=== PATIENT | female | born 1970 ===

== ENCOUNTER 2022-03-09 18:47 | Inpatient (IN) | payer BC, MEDICAID ==
[~2022-03-09] VITALS: Ht 170.2 cm; Wt 125.4 kg
[2022-03-09 19:26] LABS: BASOPHILS # (AUTO) 0.1 X10'3 (0-0.2); BASOPHILS % (AUTO) 0.8 % (0-1); EOSINOPHILS # (AUTO) 0.1 X10'3 (0-0.9); EOSINOPHILS % (AUTO) 0.9 % (0-6); HEMATOCRIT 39.6 % (35.0-45.0); HEMOGLOBIN 13.4 g/dl (12.0-16.0); LYMPHOCYTES % (AUTO) 23.4 % (21-51); MEAN CORPUSCULAR HEMOGLOBIN 32.3 PG (27.0-31.0); MEAN CORPUSCULAR HGB CONC 33.8 g/dL (33.0-36.5); MEAN CORPUSCULAR VOLUME 95.3 FL (78-98); MEAN PLATELET VOLUME 7.7 FL (7.4-10.4); MONOCYTES # (AUTO) 0.6 X10'3 (0-0.9); MONOCYTES % (AUTO) 6.6 % (2-12); NEUTROPHILS # (AUTO) 5.9 X10'3 (1.8-7.7); NEUTROPHILS % (AUTO) 68.3 % (42-75); PLATELET COUNT 312 X10'3 (140-440); RED BLOOD COUNT 4.16 X10'6 (4.20-5.60); RED CELL DISTRIBUTION WIDTH 15.5 % (11.5-14.5); WHITE BLOOD COUNT 8.7 X10'3 (4.5-11.0)
[2022-03-09 19:34] LABS: ALANINE AMINOTRANSFERASE 72 U/L (12-78); ALBUMIN/GLOBULIN RATIO 1.1 (1.1-1.5); ALKALINE PHOSPHATASE 93 IU/L (46-116); ANION GAP 9 (8-16); ASPARTATE AMINO TRANSFERASE 40 U/L (10-37); BILIRUBIN,TOTAL 2.1 MG/DL (0.1-1.0); BLOOD UREA NITROGEN 17 MG/DL (7-18); BUN/CREATININE RATIO 17.5 (6.6-38.0); CALCIUM 8.8 MG/DL (8.5-10.1); CHLORIDE 106 MMOL/L (99-107); CREATININE 0.97 MG/DL (0.40-0.90); GLUCOSE 107 MG/DL (70-104); POTASSIUM 3.7 MMOL/L (3.5-5.1); SODIUM 139 MMOL/L (135-145); TOTAL CARBON DIOXIDE 23.7 MMOL/L (24-32); TOTAL PROTEIN 7.5 G/DL (6.4-8.2); eGFR 61 ML/MIN
[2022-03-09] MEDS ORDERED: nitroGLYCERIN 0.4mg SUBLingual tab SL STA (19:43)
[2022-03-09] MEDS ORDERED: aspirin 81mg tab.chew PO ONE (19:45)
[2022-03-09] MEDS ORDERED: nitroGLYCERIN-Tridil 50MG/D5W 250 ML IV PRN (19:45)
[2022-03-09] MEDS ORDERED: magnesium 2GM in 50ml NS 50 ML IV PRN (20:15)
[2022-03-09] MEDS ORDERED: POTASSIUM BICARB 20meq eff tab 20 MEQ TABLET.EFF PO PRN (20:15)
[2022-03-09] MEDS ORDERED: potassium CL 10mEq/100ml bag 100 ML IV PRN (20:15)
[2022-03-09] MEDS ORDERED: acetaminophen 325mg tablet PO PRN (20:15)
[2022-03-09] MEDS ORDERED: PERFLUTREN PROTEIN-A MICROSPHR (Optison) 0.22 MG/ML 3ML VIAL IV ONE (20:15)
[2022-03-09] MEDS ORDERED: ondansetron/PF 4mg/2ml inj IV PRN (20:15)
[2022-03-09] MEDS ORDERED: magnesium hydroxide 30ml (MOM) UD suspension PO PRN (20:15)
[2022-03-09] MEDS ORDERED: mag hydrox/Alum hydrox/simeth 30ml oral suspension PO PRN (20:15)
[2022-03-09] MEDS ORDERED: magnesium 4gm in 100ml NS 100 ML IV PRN (20:15)
[2022-03-09] MEDS ORDERED: heparin 10,000 units/1 ML INJ IV ONE (21:30)
[2022-03-09] MEDS: heparin 25,000 UNIT/250ml bag 250 ML IV SCH (21:30)
[2022-03-09] MEDS ORDERED: hydrALAZINE 20mg/ml inj. IV PRN (21:30)
[2022-03-09] MEDS ORDERED: LOSA25TA96 PO (21:45)
[2022-03-09] MEDS ORDERED: FAMO-128 PO (21:45)
[2022-03-09] MEDS ORDERED: albuterol 2.5 MG/3 ML nebule NEB PRN (21:45)
[2022-03-09] MEDS ORDERED: LOP12.5T PO (21:45)
[2022-03-09] MEDS ORDERED: ASPI-1265 PO (21:45)
[2022-03-09] MEDS ORDERED: ALBU8.5H17 INH (21:45)
[2022-03-09 22:30] VITALS: BP 178/97
[2022-03-09] MEDS: ipratropium/albuterol 3ml nebule NEB SCH (23:20)
[2022-03-09 23:30] VITALS: BP 161/104
[2022-03-10] VITALS (11 sets, daily range): BP systolic 112–169; BP diastolic 66–99
[2022-03-10] MEDS ORDERED: HYDROcodone/acetaminophen 5mg/325mg tablet PO PRN (00:20)
[2022-03-10] MEDS: HYDROcodone/acetaminophen 10/325mg tab PO PRN ×2 (00:29→17:00)
[2022-03-10] MEDS: ipratropium/albuterol 3ml nebule NEB SCH ×6 (03:38→23:13)
--- NOTE | 2022-03-10 05:50 | NUR ---
Patient alert and oriented x4, patient better controlled at this time. Receiving nitro gtt for CP, and PRN norco for right leg pain was adequate. Patient on 2L NC for SOB at rest, SR in tele, SBA d/t weakness and nitro gtt. Voids in toilet, standing weight obtained upon arrival to unit. Pain inright leg was sudden onset after coming up to unit, order obtained for US to r/o DVT d/t concern patient may have PE and waiting on testing today. Patient unable to have CTA because of allergy to contrast.
[2022-03-10 06:19] LABS: BASOPHILS # (AUTO) 0.1 X10'3 (0-0.2); BASOPHILS % (AUTO) 1.1 % (0-1); EOSINOPHILS # (AUTO) 0.1 X10'3 (0-0.9); EOSINOPHILS % (AUTO) 1.4 % (0-6); HEMOGLOBIN 12.8 g/dl (12.0-16.0); LYMPHOCYTES # (AUTO) 2.5 X10'3 (1.1-4.8); LYMPHOCYTES % (AUTO) 31.4 % (21-51); MEAN CORPUSCULAR HEMOGLOBIN 31.9 PG (27.0-31.0); MEAN CORPUSCULAR HGB CONC 33.6 g/dL (33.0-36.5); MONOCYTES # (AUTO) 0.5 X10'3 (0-0.9); MONOCYTES % (AUTO) 6.5 % (2-12); NEUTROPHILS # (AUTO) 4.7 X10'3 (1.8-7.7); NEUTROPHILS % (AUTO) 59.6 % (42-75); PLATELET COUNT 272 X10'3 (140-440); RED BLOOD COUNT 3.99 X10'6 (4.20-5.60); RED CELL DISTRIBUTION WIDTH 15.4 % (11.5-14.5); WHITE BLOOD COUNT 7.9 X10'3 (4.5-11.0)
[2022-03-10 06:49] LABS: ALANINE AMINOTRANSFERASE 62 U/L (12-78); ALBUMIN 3.6 G/DL (3.4-5.0); ALBUMIN/GLOBULIN RATIO 1.1 (1.1-1.5); ALKALINE PHOSPHATASE 82 IU/L (46-116); ANION GAP 9 (8-16); ASPARTATE AMINO TRANSFERASE 35 U/L (10-37); BLOOD UREA NITROGEN 16 MG/DL (7-18); BUN/CREATININE RATIO 17.8 (6.6-38.0); CALCIUM 8.6 MG/DL (8.5-10.1); CHLORIDE 108 MMOL/L (99-107); GLUCOSE 90 MG/DL (70-104); POTASSIUM 3.3 MMOL/L (3.5-5.1); SODIUM 141 MMOL/L (135-145); TOTAL CARBON DIOXIDE 24.5 MMOL/L (24-32); TOTAL PROTEIN 6.9 G/DL (6.4-8.2); eGFR 66 ML/MIN
[2022-03-10] MEDS: budesonide 0.5mg/2ml UD nebule IH SCH ×2 (07:53→19:39)
--- NOTE | 2022-03-10 07:53 | NUR ---
Paged Dr Subramanian PAGER ID: [phone] MESSAGE: [id number]. Kwadwo Okeefe. Critical DVT PTT 122. Hep gtt held. Nava Portillo [phone]
[2022-03-10] MEDS: K and/or MAG REPLACEMENT MC SCH ×2 (08:00→19:26)
[2022-03-10] MEDS ORDERED: furosemide 10 MG/1 ML 10ml inj IV SCH (08:00)
[2022-03-10] MEDS: docusate sod 100mg capsule PO SCH ×2 (08:39→19:26)
[2022-03-10] MEDS: nitroGLYCERIN 0.4mg/hour patch TD SCH ×2 (08:39→20:20)
[2022-03-10] MEDS: POTASSIUM BICARB 20meq eff tab 20 MEQ TABLET.EFF PO PRN ×3 (08:41→21:07)
[2022-03-10] MEDS: heparin 25,000 UNIT/250ml bag 250 ML IV SCH ×2 (10:00→14:56)
--- NOTE | 2022-03-10 10:29 | NUR ---
Paged Dr Subramanian PAGER ID: [phone] MESSAGE: [id number]. Kwadwo Okeefe. VQ scan stopped d/t pt c/o intractable cramp pain in RLQ. Pls advise. Nava [phone]
--- NOTE | 2022-03-10 10:29 | NUR ---
JUAN RAMON Mireles brought pt back up to room. While patient was downstairs about to do the VQ scan she used the restroom first. While having a BM (she did not bear down); she explains a "bubble" that was very painful from the left of her abd to her right side. It happened about 3 times.
--- NOTE | 2022-03-10 11:42 | NUR ---
PAGER ID: [phone] MESSAGE: [id number]. Kwadwo Okeefe. More freq 07/10 pain radiating across abd. Can I get order of IV pain med? Nava Portillo [phone]
--- NOTE | 2022-03-10 11:49 | NUR ---
Paged Dr Subramanian PAGER ID: [phone] MESSAGE: [id number]. Kwadwo Okeefe. New onset, severe abd pain. CT? IV pain med? Lindsey, Nava [phone]
--- NOTE | 2022-03-10 12:02 | NUR ---
Malnutrition consult: Pt unsure of wt loss though reports decreased appetite per malnutrition risk screen with RN. Attempted visit with pt at bedside however pt in significant pain and unable to interview. RN promptly responded to patient's needs. During brief visit no fat or muscle wasting was observed. Current scaled wt is 185% IBW. Pending documentation of PO intake on heart healthy diet. Pt with no documented significant decrease in muscle strength or edema. Pt currently lacks a minimum of two criteria for malnutrition. Will continue to follow and further monitor qualifying criteria for malnutrition. Addendum: 03/10/22 at [address] Amended: Links added.
[2022-03-10] MEDS ORDERED: LORazepam 2 mg/ml vial IV ONE (12:10)
[2022-03-10] MEDS ORDERED: RIVA20TA PO (12:12)
[2022-03-10] MEDS ORDERED: BUME1TAB8 PO (12:12)
[2022-03-10] MEDS ORDERED: PANT40TA54 PO (12:12)
[2022-03-10] MEDS ORDERED: CLON0.1T2 PO (12:12)
[2022-03-10] MEDS ORDERED: LOSA50TA64 PO (12:12)
[2022-03-10] MEDS ORDERED: BUDE10.26 PO (12:12)
--- NOTE | 2022-03-10 12:12 | NUR ---
Received call from Dr Subramanian. Advised of new onset pain in abd and now right elbow radiating to right shoulder anterior to posterior. Cont heparin, new order for ativan IV once and morphine 2mg Q6H PRN pain. Will continue to monitor.
[2022-03-10] MEDS ORDERED: albuterol 2.5 MG/3 ML nebule NEB PRN (12:25)
[2022-03-10] MEDS: morphine 2 MG/ML inj. syringe IV PRN (12:35)
--- NOTE | 2022-03-10 12:58 | NUR ---
Paged Mariola Nurse. [id number]. Kwadwo Okeefe. assist to CT? Thx
--- NOTE | 2022-03-10 13:27 | NUR ---
Pt was able to get CT of abd completed but got another burst of pain in her left abd area. Sharp, acute. Comes in spurts and then subsides. Will attempt for VQ scan later.
[2022-03-10] MEDS: heparin 10,000 units/1 ML INJ IV PRN (14:54)
[2022-03-10] MEDS: furosemide 10 MG/1 ML 10ml inj IV SCH (19:24)
[2022-03-10] MEDS: cloNIDine 0.1 mg tablet PO SCH (19:24)
[2022-03-10] MEDS: bumetanide 1mg tablet PO SCH (19:24)
[2022-03-10] MEDS ORDERED: non-formulary drug (Budesonide/Formoterol Fumarate (Budesonide-Formoterol 160-4.5) 2 PUFFS PO SCH (20:00)
[2022-03-10] MEDS ORDERED: enoxaparin 40mg/0.4ml syringe SQ SCH (20:00)
[2022-03-11 02:00] VITALS: BP 127/78
[2022-03-11] MEDS: morphine 2 MG/ML inj. syringe IV PRN ×3 (02:27→22:00)
[2022-03-11] MEDS: ipratropium/albuterol 3ml nebule NEB SCH ×6 (03:14→22:56)
[2022-03-11] MEDS: heparin 25,000 UNIT/250ml bag 250 ML IV SCH (05:03)
[2022-03-11] MEDS: heparin 10,000 units/1 ML INJ IV PRN (05:26)
[2022-03-11 06:00] VITALS: BP 143/70
[2022-03-11 06:32] LABS: BASOPHILS # (AUTO) 0.1 X10'3 (0-0.2); BASOPHILS % (AUTO) 0.9 % (0-1); EOSINOPHILS # (AUTO) 0.2 X10'3 (0-0.9); EOSINOPHILS % (AUTO) 1.9 % (0-6); HEMATOCRIT 40.5 % (35.0-45.0); HEMOGLOBIN 13.6 g/dl (12.0-16.0); LYMPHOCYTES # (AUTO) 2.1 X10'3 (1.1-4.8); LYMPHOCYTES % (AUTO) 26.6 % (21-51); MEAN CORPUSCULAR HGB CONC 33.6 g/dL (33.0-36.5); MEAN CORPUSCULAR VOLUME 95.5 FL (78-98); MEAN PLATELET VOLUME 8.1 FL (7.4-10.4); MONOCYTES # (AUTO) 0.7 X10'3 (0-0.9); MONOCYTES % (AUTO) 8.7 % (2-12); NEUTROPHILS % (AUTO) 61.9 % (42-75); PLATELET COUNT 298 X10'3 (140-440); RED BLOOD COUNT 4.24 X10'6 (4.20-5.60); RED CELL DISTRIBUTION WIDTH 16.2 % (11.5-14.5)
[2022-03-11 06:50] LABS: ALANINE AMINOTRANSFERASE 56 U/L (12-78); ALBUMIN 3.7 G/DL (3.4-5.0); ALBUMIN/GLOBULIN RATIO 1.1 (1.1-1.5); ALKALINE PHOSPHATASE 87 IU/L (46-116); ANION GAP 8 (8-16); ASPARTATE AMINO TRANSFERASE 26 U/L (10-37); BILIRUBIN,TOTAL 1.2 MG/DL (0.1-1.0); BLOOD UREA NITROGEN 15 MG/DL (7-18); BUN/CREATININE RATIO 15.6 (6.6-38.0); CALCIUM 8.8 MG/DL (8.5-10.1); CHLORIDE 102 MMOL/L (99-107); CREATININE 0.96 MG/DL (0.40-0.90); GLUCOSE 102 MG/DL (70-104); MAGNESIUM 1.9 MG/DL (1.5-2.4); POTASSIUM 3.4 MMOL/L (3.5-5.1); SODIUM 138 MMOL/L (135-145); TOTAL CARBON DIOXIDE 27.7 MMOL/L (24-32); TOTAL PROTEIN 7.2 G/DL (6.4-8.2); eGFR 61 ML/MIN
[2022-03-11] MEDS: budesonide 0.5mg/2ml UD nebule IH SCH ×2 (07:45→19:05)
[2022-03-11] MEDS: POTASSIUM BICARB 20meq eff tab 20 MEQ TABLET.EFF PO PRN ×3 (08:00→19:36)
[2022-03-11] MEDS: K and/or MAG REPLACEMENT MC SCH ×2 (08:00→19:36)
[2022-03-11] MEDS: docusate sod 100mg capsule PO SCH ×2 (08:00→19:36)
[2022-03-11] MEDS: furosemide 10 MG/1 ML 10ml inj IV SCH ×2 (08:00→19:36)
[2022-03-11] MEDS: losartan 50mg tablet PO SCH (08:03)
[2022-03-11] MEDS: cloNIDine 0.1 mg tablet PO SCH ×2 (08:03→19:36)
[2022-03-11] MEDS: bumetanide 1mg tablet PO SCH ×2 (08:03→19:36)
[2022-03-11] MEDS: aspirin 81mg tab.chew PO SCH (08:03)
[2022-03-11] MEDS: pantoprazole 40mg Tablet.DR PO SCH (08:04)
[2022-03-11] MEDS: HYDROcodone/acetaminophen 10/325mg tab PO PRN (08:05)
[2022-03-11] MEDS: nitroGLYCERIN 0.4mg/hour patch TD SCH (08:07)
[2022-03-11] MEDS: LORazepam 0.5 MG tablet PO PRN (10:26)
[2022-03-11 11:40] VITALS: BP 107/65
--- NOTE | 2022-03-11 12:36 | NUR ---
Paged Dr Subramanian PAGER ID: [phone] MESSAGE: [id number]. Kwadwo Okeefe. Lung scan resulted. Low prob of PE. Nava Bonds [phone]
--- NOTE | 2022-03-11 13:10 | NUR ---
PAGER ID: [phone] MESSAGE: [id number]. Kwadwo Okeefe. Critical PTT >139. held hep gtt. CECILI. Nava [phone]
[2022-03-11 15:00] VITALS: BP 115/67
--- NOTE | 2022-03-11 15:09 | NUR ---
pt c/o of 10/10 left upper lateral abd pain. "Feels like and air pocket and takes my breath away!".she was aolmost in tears. Administered 2mg morphine. Appears that the pain is subsiding now.
[2022-03-11] MEDS: rivaroxaban 20mg tablet PO SCH (17:53)
[2022-03-11 18:00] VITALS: BP 123/79
[2022-03-11 22:00] VITALS: BP 134/72
[2022-03-12] VITALS (7 sets, daily range): BP systolic 99–134; BP diastolic 53–70
[2022-03-12] MEDS: ipratropium/albuterol 3ml nebule NEB SCH ×6 (03:05→22:50)
[2022-03-12 06:39] LABS: BASOPHILS # (AUTO) 0.1 X10'3 (0-0.2); BASOPHILS % (AUTO) 0.9 % (0-1); EOSINOPHILS # (AUTO) 0.2 X10'3 (0-0.9); EOSINOPHILS % (AUTO) 3.1 % (0-6); HEMOGLOBIN 14.1 g/dl (12.0-16.0); LYMPHOCYTES # (AUTO) 1.9 X10'3 (1.1-4.8); LYMPHOCYTES % (AUTO) 24.4 % (21-51); MEAN CORPUSCULAR HEMOGLOBIN 31.5 PG (27.0-31.0); MEAN CORPUSCULAR HGB CONC 32.9 g/dL (33.0-36.5); MEAN CORPUSCULAR VOLUME 95.9 FL (78-98); MEAN PLATELET VOLUME 7.4 FL (7.4-10.4); MONOCYTES # (AUTO) 0.9 X10'3 (0-0.9); MONOCYTES % (AUTO) 11.6 % (2-12); NEUTROPHILS # (AUTO) 4.6 X10'3 (1.8-7.7); PLATELET COUNT 327 X10'3 (140-440); RED BLOOD COUNT 4.48 X10'6 (4.20-5.60); RED CELL DISTRIBUTION WIDTH 16.4 % (11.5-14.5); WHITE BLOOD COUNT 7.6 X10'3 (4.5-11.0)
[2022-03-12 07:21] LABS: ALANINE AMINOTRANSFERASE 46 U/L (12-78); ALBUMIN 3.8 G/DL (3.4-5.0); ALKALINE PHOSPHATASE 82 IU/L (46-116); ANION GAP 10 (8-16); ASPARTATE AMINO TRANSFERASE 21 U/L (10-37); BILIRUBIN,TOTAL 1.1 MG/DL (0.1-1.0); BLOOD UREA NITROGEN 19 MG/DL (7-18); BUN/CREATININE RATIO 17.8 (6.6-38.0); CALCIUM 9.2 MG/DL (8.5-10.1); CHLORIDE 101 MMOL/L (99-107); CREATININE 1.07 MG/DL (0.40-0.90); GLUCOSE 99 MG/DL (70-104); MAGNESIUM 2.1 MG/DL (1.5-2.4); POTASSIUM 3.6 MMOL/L (3.5-5.1); SODIUM 136 MMOL/L (135-145); TOTAL CARBON DIOXIDE 25.1 MMOL/L (24-32); TOTAL PROTEIN 7.5 G/DL (6.4-8.2); eGFR 54 ML/MIN
[2022-03-12] MEDS: budesonide 0.5mg/2ml UD nebule IH SCH ×2 (07:29→19:17)
[2022-03-12] MEDS: pantoprazole 40mg Tablet.DR PO SCH (07:53)
[2022-03-12] MEDS: aspirin 81mg tab.chew PO SCH (07:53)
[2022-03-12] MEDS: losartan 50mg tablet PO SCH (07:53)
[2022-03-12] MEDS: HYDROcodone/acetaminophen 10/325mg tab PO PRN ×2 (07:54→20:25)
[2022-03-12] MEDS: docusate sod 100mg capsule PO SCH ×2 (07:59→20:22)
[2022-03-12] MEDS: cloNIDine 0.1 mg tablet PO SCH ×2 (07:59→20:22)
[2022-03-12] MEDS: K and/or MAG REPLACEMENT MC SCH ×2 (07:59→20:36)
[2022-03-12] MEDS: bumetanide 1mg tablet PO SCH ×2 (08:00→20:22)
[2022-03-12] MEDS: furosemide 10 MG/1 ML 10ml inj IV SCH (08:00)
[2022-03-12] MEDS: nitroGLYCERIN 0.4mg/hour patch TD SCH (08:01)
--- NOTE | 2022-03-12 09:41 | NUR ---
Per hospitalist who is rounding on floor ok to give both diuretics this AM. He is aware pt. states she has very old IUD implanted and she has difficulty getting f/u care for that. Will speak with CM later for resources. UA ordered.
--- NOTE | 2022-03-12 10:00 | NUR ---
Clean hat for toilet placed in bathroom and pt. educated that we need a UA and how to do a clean catch. Good feedback.
--- NOTE | 2022-03-12 15:21 | NUR ---
PAGER ID: [phone] MESSAGE: Kwadwo Okeefe [id number] woke to take VS- FYI putting in 02 order because SA02 was 84% on RA. May need sleep study OP? Yeimy [id number]
[2022-03-12 16:02] LABS: UA COLLECTION TYPE CLN CATCH MIDSTREAM
[2022-03-12 16:03] LABS: CLARITY,URINE SLIGHTLY CLOUDY (Clear); COLOR,URINE YELLOW (Yellow); GLUCOSE, URINE NEGATIVE (Neg); KETONES,URINE TRACE mg/dl (Neg); LEUKOCYTE ESTERASE ,URINE MODERATE (Neg); NITRITES, URINE NEGATIVE (Neg); OCCULT BLOOD,URINE NEGATIVE (Neg); PH,URINE 5.5 (4.8-8.0); PROTEIN,URINE TRACE mg/dl (Neg); UROBILINOGEN,URINE 0.2 E.U/dL (0.2-1.0)
[2022-03-12 16:08] LABS: BACTERIA,URINE 1+ /HPF (Neg); RBC,URINE 0-2 /HPF (0-2)
[2022-03-12 16:09] LABS: SQUAMOUS EPITHELIAL CELL,UR MODERATE /LPF (FEW)
--- NOTE | 2022-03-12 16:14 | NUR ---
PAGER ID: [phone] MESSAGE: Kwadwo Okeefe [id number] Pt. total OP today only 300ml/dysuria/ and UA pos. Do you want antibiotic? Yeimy [phone]
[2022-03-12] MEDS: cefTRIAXone 1g/NS 100ml IVPB 100 ML IV SCH (16:48)
[2022-03-12] MEDS: rivaroxaban 20mg tablet PO SCH (17:28)
--- NOTE | 2022-03-12 18:26 | NUR ---
Gave report to Misty NIÑO
[2022-03-13 02:00] VITALS: BP 110/59
[2022-03-13] MEDS: ipratropium/albuterol 3ml nebule NEB SCH ×5 (03:12→19:21)
[2022-03-13 06:00] VITALS: BP 124/61
[2022-03-13 06:15] LABS: BASOPHILS % (AUTO) 0.4 % (0-1); EOSINOPHILS # (AUTO) 0.3 X10'3 (0-0.9); EOSINOPHILS % (AUTO) 4.3 % (0-6); HEMATOCRIT 42.4 % (35.0-45.0); HEMOGLOBIN 14.4 g/dl (12.0-16.0); LYMPHOCYTES # (AUTO) 0.5 X10'3 (1.1-4.8); LYMPHOCYTES % (AUTO) 7.3 % (21-51); MEAN CORPUSCULAR HEMOGLOBIN 32.9 PG (27.0-31.0); MEAN CORPUSCULAR HGB CONC 34.1 g/dL (33.0-36.5); MEAN CORPUSCULAR VOLUME 96.4 FL (78-98); MEAN PLATELET VOLUME 7.4 FL (7.4-10.4); MONOCYTES # (AUTO) 0.5 X10'3 (0-0.9); MONOCYTES % (AUTO) 7.2 % (2-12); NEUTROPHILS # (AUTO) 5.5 X10'3 (1.8-7.7); NEUTROPHILS % (AUTO) 80.8 % (42-75); PLATELET COUNT 306 X10'3 (140-440); RED BLOOD COUNT 4.39 X10'6 (4.20-5.60); WHITE BLOOD COUNT 6.8 X10'3 (4.5-11.0)
--- NOTE | 2022-03-13 06:16 | NUR ---
Patient in room PCU 3024. I have received report from Will RN and had the opportunity to ask questions and assume patient care.
--- NOTE | 2022-03-13 06:30 | NUR ---
Patient in room PCU 3024. I have received report from WILL RN and had the opportunity to ask questions and assume patient care.
[2022-03-13 06:34] LABS: ALANINE AMINOTRANSFERASE 44 U/L (12-78); ALBUMIN 3.7 G/DL (3.4-5.0); ALKALINE PHOSPHATASE 83 IU/L (46-116); ANION GAP 9 (8-16); ASPARTATE AMINO TRANSFERASE 24 U/L (10-37); BLOOD UREA NITROGEN 22 MG/DL (7-18); BUN/CREATININE RATIO 20.4 (6.6-38.0); CALCIUM 9.1 MG/DL (8.5-10.1); CHLORIDE 102 MMOL/L (99-107); CREATININE 1.08 MG/DL (0.40-0.90); GLUCOSE 105 MG/DL (70-104); MAGNESIUM 2.1 MG/DL (1.5-2.4); SODIUM 136 MMOL/L (135-145); TOTAL CARBON DIOXIDE 24.7 MMOL/L (24-32); TOTAL PROTEIN 7.3 G/DL (6.4-8.2); eGFR 53 ML/MIN
[2022-03-13] MEDS: budesonide 0.5mg/2ml UD nebule IH SCH ×2 (07:06→19:21)
[2022-03-13] MEDS: bumetanide 1mg tablet PO SCH ×2 (08:11→20:00)
[2022-03-13] MEDS: cloNIDine 0.1 mg tablet PO SCH ×2 (08:11→20:00)
[2022-03-13] MEDS: losartan 50mg tablet PO SCH (08:11)
[2022-03-13] MEDS: aspirin 81mg tab.chew PO SCH (08:12)
[2022-03-13] MEDS: nitroGLYCERIN 0.4mg/hour patch TD SCH (08:15)
[2022-03-13] MEDS: HYDROcodone/acetaminophen 10/325mg tab PO PRN ×3 (08:15→17:39)
[2022-03-13] MEDS: cefTRIAXone 1g/NS 100ml IVPB 100 ML IV SCH (08:16)
[2022-03-13] MEDS: pantoprazole 40mg Tablet.DR PO SCH (08:17)
[2022-03-13] MEDS: K and/or MAG REPLACEMENT MC SCH ×2 (08:18→20:00)
[2022-03-13] MEDS: docusate sod 100mg capsule PO SCH ×2 (08:18→20:34)
--- NOTE | 2022-03-13 09:45 | NUR ---
Initial: Pt admitted w/ shortness of breath with history of pulmonary embolism and acute on chronic CHF per EMR. Currently on Heart healthy diet w/ 1.2L fluid restriction w/ mostly 75-100% intake of meals meeting needs at this time. LBM 03/12 receiving routine colace. No nutrition intervention implemented at this time, will continue to monitor. Recs; 1. Continue Heart Healthy diet w/ 1.2L fluid restriction per MD 2. Bowel care per rx 3. Weekly wts Addendum: 03/13/22 at [address] Amended: Links added.
[2022-03-13 11:00] VITALS: BP 99/60
[2022-03-13] MEDS ORDERED: NITR1PAT68 TD ×2 (11:56)
[2022-03-13] MEDS ORDERED: SITA25TA3 PO (12:00)
[2022-03-13] MEDS ORDERED: CARV3.122 PO (12:00)
--- NOTE | 2022-03-13 13:14 | NUR ---
O2 Sat at rest on room air:96___% If below 89%: Recovery O2 Sat at rest on _96__LPM:_RA__%:___% via (mask/nasal cannula, etc..) No further documentation is necessary. If O2 Sat did not drop below 89% on room air,ambulate patient on room air. O2 Sat while ambulating on room air:___% Recovery O2 Sat while ambulating on ___LPM:___% No further documentation is necessary. If patient does not drop below 89% while ambulating, he/she does not qualify for home O2. This Pt. does not qualify for home oxygen and does not require oxygen at this time.
[2022-03-13] MEDS: morphine 2 MG/ML inj. syringe IV PRN (13:42)
[2022-03-13 15:00] VITALS: BP 94/48
[2022-03-13] MEDS: rivaroxaban 20mg tablet PO SCH (16:21)
[2022-03-13] MEDS: LORazepam 0.5 MG tablet PO PRN (17:38)
[2022-03-13 18:00] VITALS: BP 107/51
--- NOTE | 2022-03-13 18:30 | NUR ---
Received report from Poly DELATORRE.
[2022-03-13 20:35] VITALS: BP 92/53
--- NOTE | 2022-03-13 20:50 | NUR ---
When I came on shift patient had a family member visiting in her room (nephew). Explained to both of them that patient is in fact being discharged this evening per MD. Nephew helped pack up most of her belongings and then took down to his vehicle. Patient insisted on taking a shower prior to leaving, and then also received a BR TX . Nurse was going to have her BP meds due at 1999, but BP slightly low. Patient packed up the rest of her belongings and I gave her a pitcher of fresh water to go. Patient was then taken down to [facility] via [facility]C , in no distress, and released to her nephew who was waiting with his car to drive patient to [place]. Addendum: 03/14/22 at 0202 by Alicia Rogers RN Discharge package had been gone over with the patient her verbalized her understanding to follow up with her PCP in one week, to start taking her new medications, and to follow up with getting her IUD removed.
== END 2022-03-13 20:53 | disposition home or self-care (01) | DRG 291 ==
LOC: ER 18:48 → ED HOLD 20:19 → EDBEDREQ 21:57 → PCU 3S 22:15
PROVIDERS: ADMIT Family Medicine; ATTEND Family Medicine
PROC: CB121ZZ Planar Nuclear Medicine Imaging of Lungs and Bronchi using Technetium 99m (Tc-99m) (ICD-10-PCS; principal; 2022-03-11)
DX: I11.0 Hypertensive heart disease with heart failure (principal); I50.23 Acute on chronic systolic (congestive) heart failure; J96.00 Acute respiratory failure, unspecified whether with hypoxia or hypercapnia; N17.0 Acute kidney failure with tubular necrosis; E87.2 Acidosis; Z68.41 Body mass index [BMI] 40.0-44.9, adult; E66.01 Morbid (severe) obesity due to excess calories; E87.6 Hypokalemia; M54.9 Dorsalgia, unspecified; M79.601 Pain in right arm; R10.84 Generalized abdominal pain; R21 Rash and other nonspecific skin eruption; F41.1 Generalized anxiety disorder; I34.0 Nonrheumatic mitral (valve) insufficiency; J45.909 Unspecified asthma, uncomplicated; T50.8X5A Adverse effect of diagnostic agents, initial encounter; Z86.711 Personal history of pulmonary embolism; Z79.01 Long term (current) use of anticoagulants; Z82.3 Family history of stroke; Z97.5 Presence of (intrauterine) contraceptive device; Z90.49 Acquired absence of other specified parts of digestive tract
CPT/HCPCS: 36415; 71045; 74176; 78582; 80053; 81001; 83735; 83880; 84484; 85025; 85730; 87081; 87088; 93005; 93306; 93970; 94640; 94667; 94668; 94760; 97116; 97161; 97530; 97535; 99285; A9539; A9540; G0378; J0360; J0696; J1644; J1940; J2060; J2270; J3490; J7030; J7040